=== PATIENT | male | born 1985 | race Caucasian/White ===

== ENCOUNTER 2025-06-28 18:11 | Emergency (ER) | payer MEDICAID ==
[~2025-06-28] VITALS: Ht 175.3 cm; Wt 86.0 kg
[2025-06-28 18:16] VITALS: TEMP 36.7; O2SAT 97
[2025-06-28 22:00] VITALS: BP 149/100; PULSE 100; RESP 17; O2SAT 100
== END 2025-06-28 22:10 | disposition home or self-care (01) ==
LOC: ER 18:11
DX: G89.29 Other chronic pain (principal); M79.672 Pain in left foot; R00.0 Tachycardia, unspecified; F20.9 Schizophrenia, unspecified; Z59.01 Sheltered homelessness; Z88.0 Allergy status to penicillin
CPT/HCPCS: 99283

== ENCOUNTER 2025-06-29 08:08 | Emergency (ER) | payer MEDICAID ==
[~2025-06-29] VITALS: Ht 188 cm; Wt 104.0 kg
[2025-06-29 08:16] VITALS: O2SAT 96
[2025-06-29 09:12] LABS: BASOPHILS % 1.1 % (0.0-2.0); EOSINOPHILS % 4.5 % (0.0-5.0); HEMATOCRIT. 40.5 % (42.0-52.0); HEMOGLOBIN. 13.6 g/dL (14.0-18.0); LYMPHOCYTES % 14.4 % (20.0-50.0); MEAN PLATELET VOLUME 8.9 fl (7.4-10.4); MONOCYTES % 8.2 % (2.0-8.0); NEUTROPHILS % 71.8 % (40.0-76.0); PLATELET 233 x1000/uL (130-400); RED BLOOD CELL COUNT 4.85 mill/uL (4.7-6.1); RED CELL DISTRIBUTION WIDTH 14.1 % (11.6-14.6)
[2025-06-29 09:19] LABS: CREATININE 0.7 mg/dL (0.6-1.3); UREA NITROGEN BLOOD 9 mg/dL (9-23)
[2025-06-29 09:20] LABS: ETHANOL BLOOD < 10 mg/dL (<10)
[2025-06-29 10:46] LABS: *AMPHETAMINES SCREEN URINE NEGATIVE (NEGATIVE); *BARBITURATES SCREEN URINE NEGATIVE (NEGATIVE); *BENZODIAZEPINES SCREEN URINE NEGATIVE (NEGATIVE); *COCAINE SCREEN URINE NEGATIVE (NEGATIVE); CANNABINOID URINE SCREEN NEGATIVE (NEGATIVE); METHADONE URINE SCREEN NEGATIVE (NEGATIVE); OPIATES URINE SCREEN NEGATIVE (NEGATIVE); PHENCYCLIDINE URINE SCREEN NEGATIVE (NEGATIVE)
[2025-06-29 10:47] LABS: ECSTASY MDMA SCREEN URINE NEGATIVE (NEGATIVE)
[2025-06-29] MEDS: RISPERIDONE 0.5MG TABLET PO SCH (13:15)
[2025-06-29] MEDS: NICOTINE 7MG PATCH TD ONE (19:50)
[2025-06-29 20:07] VITALS: BP 148/85; PULSE 102; RESP 18; TEMP 36.9; O2SAT 100
== END 2025-06-29 20:27 ==
LOC: ER 08:08
DX: R45.851 Suicidal ideations (principal); F20.9 Schizophrenia, unspecified; Z79.899 Other long term (current) drug therapy; Z88.0 Allergy status to penicillin; Z20.822 Contact with and (suspected) exposure to COVID-19
CPT/HCPCS: 36415; 80048; 80305; 80307; 80320; 80329; 85025; 87426; 99285; G0480